=== PATIENT | female | born 1995 | race Caucasian/White ===

== ENCOUNTER 2017-12-14 18:46 | Emergency (ER) | payer SELFPAY ==
--- NOTE | 2017-12-14 19:16 | EDM.PDOC ---
ED HPI GENERAL MEDICAL PROBLEM - General Chief Complaint: Gastrointestinal Problem Stated Complaint: THROWING UP Time Seen by Provider: 12/14/17 19:15 - History of Present Illness INITIAL COMMENTS - FREE TEXT/NARRATIVE: 22-year-old female presents emergency room with nausea and vomiting. This started early this morning at 7 AM she's vomited multiple times. She does not have associated abdominal pain unless it was just before after throwing up. She has had no fevers has some occasional chills usually associated with vomiting. No diarrhea. Past medical history significant for peanut allergy and recurrent ear infection. She wonders if perhaps she may have had a peanut exposure at work. She denies any possibility of being . Headache Pain Score (Numeric/FACES): 2 - Related Data Allergies Allergy/AdvReac Type Severity Reaction Status Date / Time ceftriaxone [From Rocephin] Allergy Syncope Verified 12/14/17 18:59 peanut Allergy Rash Verified 12/14/17 18:59 Home Meds: Home Meds Ondansetron [Zofran ODT] 4 mg PO Q4H PRN #10 tab.dis 12/14/17 [Rx] Past Medical History - Past Health History Medical/Surgical History: Denies Medical/Surgical History Neurological History: Reports: Migraines - Past Surgical History HEENT Surgical History: Reports: Adenoidectomy, Tonsillectomy Social & Family History - Family History Family Medical History: Noncontributory - Tobacco Use Smoking Status *Q: Never Smoker - Recreational Drug Use Recreational Drug Use: No ED ROS GENERAL - Review of Systems Review Of Systems: See Below Constitutional: Reports: Chills HEENT: Reports: No Symptoms Respiratory: Reports: No Symptoms Cardiovascular: Reports: No Symptoms Endocrine: Reports: No Symptoms GI/Abdominal: Reports: Nausea, Vomiting. Denies: Abdominal Pain, Constipation, Diarrhea, Distension, Hematochezia, Melena : Reports: No Symptoms Musculoskeletal: Reports: No Symptoms Skin: Reports: No Symptoms Neurological: Reports: No Symptoms ED EXAM, GI/ABD - Physical Exam Exam: See Below Exam Limited By: No Limitations General Appearance: Alert, No Apparent Distress, Other (Cooperative good color normal vitals) Head: Atraumatic, Normocephalic Neck: Normal Inspection, Supple, Non-Tender, Full Range of Motion. No: Lymphadenopathy (L), Lymphadenopathy (R) Respiratory/Chest: No Respiratory Distress, Lungs Clear, Normal Breath Sounds Cardiovascular: Normal Peripheral Pulses, Regular Rate, Rhythm, No Edema GI/Abdominal Exam: Normal Bowel Sounds, Soft, Non-Tender, No Organomegaly, No Distention. No: Guarding, Rigid, Rebound Back Exam: Normal Inspection, CVA Tenderness (L), CVA Tenderness (R) Extremities: Normal Inspection, No Pedal Edema Neurological: Alert, Normal Cognition Course - Vital Signs Last Recorded V/S: Last Vital Signs Temp 36.7 C 12/14/17 18:52 Pulse 87 12/14/17 18:52 Resp 18 12/14/17 18:52 BP 134/92 H 12/14/17 18:52 Pulse Ox 99 12/14/17 18:52 - Orders/Labs/Meds Meds: Medications Discontinued Medications Generic Name Dose Route Start Last Admin Trade Name Lin PRN Reason Stop Dose Admin Ondansetron HCl 8 mg 12/14/17 19:27 12/14/17 19:31 Zofran Odt PO 12/14/17 19:28 8 mg ONETIME ONE Administration - Re-Assessments/Exams Free Text/Narrative Re-Assessment/Exam: 12/14/17 21:03 Patient received oral Zofran and is doing much better she O bottle of Powerade, any difficulty she is not nauseated we'll discharge home at this time Departure - Departure Time of Disposition: 21:03 Disposition: Home, Self-Care 01 Clinical Impression: Gastroenteritis - Discharge Information Prescriptions: Ondansetron [Zofran ODT] 4 mg PO Q4H PRN #10 tab.dis PRN Reason: Nausea/Vomiting Referrals: PCP,Not In Area [Primary Care Provider] - Forms: ED Department Discharge Additional Instructions: Return to emergency room if any questions problems or worsening symptoms. Take Zofran as directed, and as needed. Clear liquid diet. Do this for the next 24 hours then slowly advance as tolerated. Follow-up with your regular physician in 3 days if needed.
[2017-12-14] MEDS ORDERED: Ondansetron 4 MG Tab.DIS PO ONE (19:27)
== END 2017-12-14 21:13 | disposition home or self-care (01) ==
LOC: JD.ED 18:46
DX: K52.9 Noninfective gastroenteritis and colitis, unspecified (principal); Z88.1 Allergy status to other antibiotic agents; Z91.010 Allergy to peanuts
CPT/HCPCS: 99284; A9270